=== PATIENT | female | born 1980 | race Caucasian/White ===

== ENCOUNTER 2019-02-19 11:45 | Emergency (ER) | payer MEDICAID, OTHER ==
[~2019-02-19] VITALS: Ht 162.5 cm; Wt 54.5 kg
--- NOTE | 2019-02-19 12:18 | NUR ---
FEMALE AT BEDSIDE GIVES POOR HX PATIENT LYING ON BED WILL NOT TALK TO STAFF.
[2019-02-19] MEDS ORDERED: NS IV 1000 ML 1,000 ML IV ONE (12:32)
[2019-02-19 12:50] LABS: BASOPHILS % (AUTO) 0 % (0-10); EOSINOPHILS % (AUTO) 0 % (0-10); HEMATOCRIT 38 % (35-52); HEMOGLOBIN 12.9 G/DL (11.5-16.0); LYMPHOCYTES % (AUTO) 8 % (12-44); MEAN CORPUSCULAR HEMOGLOBIN 30 PG (25-34); MEAN CORPUSCULAR HGB CONC 34 G/DL (32-36); MEAN CORPUSCULAR VOLUME 87 FL (80-99); MEAN PLATELET VOLUME 9.1 FL (7.4-10.4); MONOCYTES # (AUTO) 0.7 X 10^3 (0.0-1.0); MONOCYTES % (AUTO) 5 % (0-12); NEUTROPHILS # (AUTO) 11.7 X 10^3 (1.8-7.8); NEUTROPHILS % (AUTO) 87 % (42-75); PLATELET COUNT 260 10^3/uL (130-400); RED CELL DISTRIBUTION WIDTH 13.5 % (10.0-14.5); WHITE BLOOD COUNT 13.4 10^3/uL (4.3-11.0)
[2019-02-19 13:13] LABS: ALANINE AMINOTRANSFERASE 9 U/L (0-55); ALBUMIN 4.4 GM/DL (3.2-4.5); ALKALINE PHOSPHATASE 72 U/L (40-136); BILIRUBIN,TOTAL 0.3 MG/DL (0.1-1.0); BUN/CREATININE RATIO 22; CARBON DIOXIDE 21 MMOL/L (21-32); CHLORIDE 104 MMOL/L (98-107); CREATININE SERUM 0.76 MG/DL (0.60-1.30); GFR ESTIMATED > 60; GLUCOSE 108 MG/DL (70-105); MAGNESIUM 2.2 MG/DL (1.6-2.4); SALICYLATE < 5.0 MG/DL (5.0-20.0); SODIUM 135 MMOL/L (135-145); TOTAL PROTEIN 7.4 GM/DL (6.4-8.2)
[2019-02-19 13:14] LABS: ACETAMINOPHEN < 10 UG/ML (10-30)
[2019-02-19 13:19] LABS: LYMPHOCYTES % (MANUAL) 10 %; MONOCYTES % (MANUAL) 2 %; NEUTROPHILS % (MANUAL) 88 %; RBC MORPH NORMAL
[2019-02-19 13:33] LABS: TSH (THYROID ANALYZER) 0.28 UIU/ML (0.35-4.94)
--- NOTE | 2019-02-19 14:00 | NUR ---
TO ROOM FEMALE FRIEND WITH HER IN BED WITH HER. PATIENT CON'T TO SLEEP. FRIEND REPORTS SHE DID WAKE UP AND C/O HEADACHE.
--- NOTE | 2019-02-19 14:09 | NUR ---
PATIENT NOT COPERATIVE SO UNABLE TO EVALUATE.
[2019-02-19 14:21] LABS: FREE T4 (FREE THYROXINE) 1.05 NG/DL (0.70-1.48)
[2019-02-19 15:20] LABS: BILIRUBIN,URINE NEGATIVE (NEGATIVE); CLARITY,URINE CLEAR; COLOR,URINE YELLOW; GLUCOSE, URINE (UA) NEGATIVE (NEGATIVE); KETONES,URINE 3+ (NEGATIVE); LEUKOCYTE ESTERASE ,URINE NEGATIVE (NEGATIVE); NITRITE,URINE NEGATIVE (NEGATIVE); PH,URINE 5 (5-9); PROTEIN,URINE NEGATIVE (NEGATIVE); UROBILINOGEN,URINE NORMAL (NORMAL)
[2019-02-19 15:30] LABS: AMORPHOUS SEDIMENT,UR MOD AMOR URATES /LPF; BACTERIA,URINE FEW /HPF
[2019-02-19 15:31] LABS: AMPHETAMINE SCREEN, URINE NEGATIVE (NEGATIVE); BARBITURATE SCREEN URINE NEGATIVE (NEGATIVE); BENZODIAZEPINES SCREEN URINE NEGATIVE (NEGATIVE); CANNABINOID SCREEN, URINE POSITIVE (NEGATIVE); COCAINE SCREEN URINE POSITIVE (NEGATIVE); METHADONE STAT NEGATIVE (NEGATIVE); METHAMPHETAMINE SCREEN URINE S NEGATIVE (NEGATIVE); OPIATE SCREEN URINE NEGATIVE (NEGATIVE); OXYCODONE STAT NEGATIVE (NEGATIVE); TRICYCLIC ANTIDEPRESSANTS SCRE NEGATIVE (NEGATIVE)
[2019-02-19 15:32] LABS: PROPOXYPHENE STAT NEGATIVE (NEGATIVE)
--- NOTE | 2019-02-19 15:58 | Diagnostic Imaging Report ---
PROCEDURE: CT head without contrast. TECHNIQUE: Multiple contiguous axial images were obtained through the brain without the use of intravenous contrast. Auto Exposure Controls were utilized during the CT exam to meet ALARA standards for radiation dose reduction. INDICATION: Seizures. COMPARISON: No prior studies are available for comparison. FINDINGS: The study is significantly limited due to motion artifact. In particular, the posterior fossa is severely limited. Ventricles and sulci are within normal limits. There is no evidence of hydrocephalus. No midline shift is seen. No acute intra-axial or extra-axial hemorrhage is detected. Cisterns appear patent. Visualized paranasal sinuses are clear. IMPRESSION: Limited study due to patient motion. This particularly limits the posterior fossa. Visualized brain is without acute abnormality. Dictated by: Dictated on workstation # [id number]
[2019-02-19] MEDS ORDERED: LACTATED RINGERS 1,000 ML IV ONE (17:01)
[2019-02-19] MEDS ORDERED: KETOROLAC 30 MG/ML VIAL IVP ONE (17:15)
--- NOTE | 2019-02-19 17:35 | Diagnostic Imaging Report ---
EXAMINATION: Portable chest. INDICATION: Seizures. FINDINGS: The findings demonstrate no focal infiltrate or consolidation. There is no effusion. There is no pneumothorax. Heart size and mediastinal contours appear appropriate. Pulmonary vascularity appears normal. No acute or suspicious osseous abnormality demonstrated. IMPRESSION: Radiographic evidence of an acute cardiopulmonary process. Dictated by: Dictated on workstation # [id number]
--- NOTE | 2019-02-19 18:50 | ED Neurological Problem ---
General Chief Complaint: Neurological Problems Stated Complaint: SEIZURES Nursing Triage Note: AMB TO ROOM WITH FEMALE WHO REPORTS THAT HAS SEIZURES DUE TO A OPID ADDICATION HAS HAD A SEIZURE LAST NIGHT AND THIS AM. IS OUT OF ALL HER MEDS. SEE Kristy ABDI AT THE [facility] . IS TO SEE FERNANDO [facility] AND HE WILL WRITE ALL HER MEDS CONCERN THAT SHE HAS BEEN CONFUSED SINCE LAST SEIZURE. Nursing Sepsis Screen: No Definite Risk Source: patient Exam Limitations: no limitations History of Present Illness Date Seen by Provider: Feb 19, 2019 Time Seen by Provider: 12:11 Allergies and Home Medications Allergies Coded Allergies: Penicillins (Verified Allergy, Unknown, 02/19/19) Past Zcnqycs-Kgcbwo-Kawmxs Hx Patient Social History Alcohol Use: Denies Use Recreational Drug Use: Yes Smoking Status: Unknown if Ever Smoked Recent Foreign Travel: No Contact w/Someone Who Travel: No Recent Infectious Disease Expo: No Past Medical History Surgeries: Yes (L LUNG REMOVAL ) Cardiac: No Neurological: Yes (SEIZURE DUE TO OPID WITHDRAW) Musculoskeletal: No HEENT: No Cancer: No Psychosocial: No Physical Exam Vital Signs Vital Signs - First Documented 02/19/19 11:55 Temp 37.8 Pulse 77 Resp 18 B/P (MAP) 107/66 (80) Pulse Ox 99 O2 Delivery Room Air Capillary Refill : Less Than 3 Seconds Height, Weight, BMI Height: '" Weight: lbs. oz. kg; 20.00 BMI Method: Progress/Results/Core Measures Results/Orders Lab Results Laboratory Tests Test 02/19/19 12:40 02/19/19 12:45 02/19/19 15:13 Range/Units C-Reactive Protein High Sensitivity 0.31 0.00-0.50 MG/DL White Blood Count 13.4 H 4.3-11.0 10^3/uL Red Blood Count 4.31 L 4.35-5.85 10^6/uL Hemoglobin 12.9 11.5-16.0 G/DL Hematocrit 38 35-52 % Mean Corpuscular Volume 87 80-99 FL Mean Corpuscular Hemoglobin 30 25-34 PG Mean Corpuscular Hemoglobin Concent 34 32-36 G/DL Red Cell Distribution Width 13.5 10.0-14.5 % Platelet Count 260 130-400 10^3/uL Mean Platelet Volume 9.1 7.4-10.4 FL Neutrophils (%) (Auto) 87 H 42-75 % Lymphocytes (%) (Auto) 8 L 12-44 % Monocytes (%) (Auto) 5 0-12 % Eosinophils (%) (Auto) 0 0-10 % Basophils (%) (Auto) 0 0-10 % Neutrophils # (Auto) 11.7 H 1.8-7.8 X 10^3 Lymphocytes # (Auto) 1.0 1.0-4.0 X 10^3 Monocytes # (Auto) 0.7 0.0-1.0 X 10^3 Eosinophils # (Auto) 0.0 0.0-0.3 10^3/uL Basophils # (Auto) 0.0 0.0-0.1 10^3/uL Neutrophils % (Manual) 88 % Lymphocytes % (Manual) 10 % Monocytes % (Manual) 2 % Blood Morphology Comment NORMAL Sodium Level 135 135-145 MMOL/L Potassium Level 4.0 3.6-5.0 MMOL/L Chloride Level 104 98-107 MMOL/L Carbon Dioxide Level 21 21-32 MMOL/L Anion Gap 10 5-14 MMOL/L Blood Urea Nitrogen 17 7-18 MG/DL Creatinine 0.76 0.60-1.30 MG/DL Estimat Glomerular Filtration Rate > 60 BUN/Creatinine Ratio 22 Glucose Level 108 H 70-105 MG/DL Calcium Level 9.0 8.5-10.1 MG/DL Corrected Calcium 8.7 8.5-10.1 MG/DL Magnesium Level 2.2 1.6-2.4 MG/DL Total Bilirubin 0.3 0.1-1.0 MG/DL Aspartate Amino Transf (AST/SGOT) 14 5-34 U/L Alanine Aminotransferase (ALT/SGPT) 9 0-55 U/L Alkaline Phosphatase 72 40-136 U/L Total Protein 7.4 6.4-8.2 GM/DL Albumin 4.4 3.2-4.5 GM/DL Free Thyroxine 1.05 0.70-1.48 NG/DL TSH [place] Testing 0.28 L 0.35-4.94 UIU/ML Serum Test, Qualitative NEGATIVE NEGATIVE Salicylates Level < 5.0 L 5.0-20.0 MG/DL Acetaminophen Level < 10 L 10-30 UG/ML Serum Alcohol < 10 <10 MG/DL Urine Color YELLOW Urine Clarity CLEAR Urine pH 5 5-9 Urine Specific [place] 1.020 1.016-1.022 Urine Protein NEGATIVE NEGATIVE Urine Glucose (UA) NEGATIVE NEGATIVE Urine Ketones 3+ H NEGATIVE Urine Nitrite NEGATIVE NEGATIVE Urine Bilirubin NEGATIVE NEGATIVE Urine Urobilinogen NORMAL NORMAL MG/DL Urine Leukocyte Esterase NEGATIVE NEGATIVE Urine RBC (Auto) 3+ H NEGATIVE Urine RBC 2-5 H /HPF Urine WBC NONE /HPF Urine Squamous Epithelial Cells 5-10 /HPF Urine Crystals PRESENT H /LPF Urine Amorphous Sediment MOD LISETH URATES H /LPF Urine Bacteria FEW H /HPF Urine Casts NONE /LPF Urine Mucus MODERATE H /LPF Urine Culture Indicated NO Urine Opiates Screen NEGATIVE NEGATIVE Urine Oxycodone Screen NEGATIVE NEGATIVE Urine Methadone Screen NEGATIVE NEGATIVE Urine Propoxyphene Screen NEGATIVE NEGATIVE Urine Barbiturates Screen NEGATIVE NEGATIVE Ur Tricyclic Antidepressants Screen NEGATIVE NEGATIVE Urine Phencyclidine Screen NEGATIVE NEGATIVE Urine Amphetamines Screen NEGATIVE NEGATIVE Urine Methamphetamines Screen NEGATIVE NEGATIVE Urine Benzodiazepines Screen NEGATIVE NEGATIVE Urine Cocaine Screen POSITIVE H NEGATIVE Urine Cannabinoids Screen POSITIVE H NEGATIVE Micro Results Microbiology 02/19/19 Influenza Types A,B Antigen (CHENG) - Final, Complete My Orders Orders - TRENTON DIEGO MD Acetaminophen (02/19/19 12:26) Alcohol (02/19/19 12:26) Cbc With Automated Diff (02/19/19 12:26) Comprehensive Metabolic Panel (02/19/19 12:26) Drug Screen Stat (Urine) (02/19/19 12:26) Hcg,Qualitative Serum (02/19/19 12:26) Magnesium (02/19/19 12:26) Salicylate (02/19/19 12:26) Thyroid Analyzer (02/19/19 12:26) Ua Culture If Indicated (02/19/19 12:26) Ed Iv/Invasive Line Start (02/19/19 12:26) Ns Iv 1000 Ml (Sodium Chloride 0.9%) (02/19/19 12:32) Manual Differential (02/19/19 12:45) Free T4 (Free Thyroxine) (02/19/19 12:45) Ct Head Wo (02/19/19 15:09) Influenza A And B Antigens (02/19/19 16:52) Chest 1 View, Ap/Pa Only (02/19/19 16:52) Hs C Reactive Protein (02/19/19 16:52) Lactated Ringers (Lr 1000 Ml Iv Solution (02/19/19 17:01) Ketorolac Injection (Toradol Injection) (02/19/19 17:15) Iv Push Apple Peeler Operator Ed (02/19/19 ) Medications Given in ED Vital Signs/I&O 02/19/19 02/19/19 11:55 18:51 Temp 37.8 37.8 Pulse 77 77 Resp 18 18 B/P (MAP) 107/66 (80) 107/66 (80) Pulse Ox 99 99 O2 Delivery Room Air Blood Pressure Mean: 80 Departure Impression Primary Impression: Altered mental status Qualified Codes: R41.82 - Altered mental status, unspecified Additional Impressions: Polysubstance abuse Opioid dependence Qualified Codes: F11.29 - Opioid dependence with unspecified opioid-induced disorder Acute headache Qualified Codes: R51 - Headache Disposition: 01 HOME, SELF-CARE Condition: Improved Departure-Patient Inst. Decision time for Depature: 18:49 Referrals: NO,LOCAL PHYSICIAN (PCP/Family) Primary Care Physician Patient Instructions: Opioid Use Disorder Add. Discharge Instructions: For your headache you may take ibuprofen up to 600 mg every 6 hours as needed and Tylenol (acetaminophen) up to 1000 mg every 6 hours as needed. Follow-up with your primary care provider and a substance abuse treatment Center as soon as possible. You may follow-up with the [facility] as previously planned. Return to the emergency room if you have worsening symptoms. Use your medications only as prescribed. Do not take them in higher doses. Avoid use of any psychotropic substances such as marijuana, cocaine, etc. All discharge instructions reviewed with patient and/or family. Voiced understan antonio. TRENTON DIEGO MD Feb 19, 2019 18:50
[2019-02-19 18:51] VITALS: BP 107/66
== END 2019-02-19 18:51 | disposition home or self-care (01) ==
LOC: ER 11:47
DX: R41.82 Altered mental status, unspecified (principal); F11.20 Opioid dependence, uncomplicated; Z91.14 Patient's other noncompliance with medication regimen; Z88.0 Allergy status to penicillin
CPT/HCPCS: 36415; 70450; 71045; 80053; 80306; 80320; 80329; 81000; 83735; 84439; 84443; 84703; 85007; 85027; 86141; 87804; 96361; 96374